=== PATIENT | male | born 1990 | race Hispanic/Latino ===

== ENCOUNTER 2018-04-22 15:21 | Emergency (ER) | payer OTHER, SELFPAY ==
[2018-04-22 16:02] LABS: #Basophils 0.1 thou/uL (0.0-0.2); #Lymphocytes 2.2 thou/uL (1.20-3.40); #Monocytes 1.5 thou/uL (0.11-0.59); #Neutrophils 8.3 thou/uL (1.40-6.50); %Basophils 0.6 % (0.0-1.0); %Eosinophils 0.3 % (0.0-10.0); %Lymphocytes 18.4 % (21.0-51.0); %Monocytes 12.3 % (0.0-10.0); %Neutrophils 68.4 % (42.0-75.0); Hemoglobin 16.4 g/dL (14.0-18.0); Mean Corpuscular HGB CONC 34.1 g/dL (32.0-36.0); Mean Corpuscular Hemoglobin 30.9 pg (27.0-31.0); Mean Corpuscular Volume 90.7 fL (78.0-98.0); Mean Platelet Volume 9.4 fL (7.4-10.4); Platelet Count 247 thou/uL (130-400); Red Blood Cell (RBC) Count 5.31 mill/uL (4.70-6.10); White Blood Cell (WBC) Count 12.1 thou/uL (4.8-10.8)
--- NOTE | 2018-04-22 16:08 | RAD ---
PORTABLE CHEST: 04/22/2018 PROVIDED CLINICAL HISTORY: Chest pain. COMPARISON: 04/08/2012 FINDINGS: The cardiac and mediastinal silhouette are within normal limits. The lungs appear clear. No pleural fluid or pneumothorax apparent. IMPRESSION: No evidence for an acute cardiopulmonary process. POS: [facility]
[2018-04-22 16:23] LABS: ALT (SGPT) 42 U/L (8-55); AST (SGOT) 32 U/L (5-34); Albumin 5.1 g/dL (3.5-5.0); Alkaline Phosphatase 62 U/L (40-150); Anion Gap 16 mmol/L (10-20); BUN (Urea Nitrogen) 8 mg/dL (8.9-20.6); Calc. Creatinine Clearance 0 mL/min (70-130); Calcium 9.9 mg/dL (7.8-10.44); Carbon Dioxide 23 mmol/L (22-29); Chloride 101 mmol/L (98-107); Estimated GFR-MDRD 70; Globulin 3.3 g/dL (2.4-3.5); Glucose 122 mg/dL (70-105); Potassium 3.3 mmol/L (3.5-5.1); Protein, Total 8.4 g/dL (6.0-8.3); Sodium 137 mmol/L (136-145)
[2018-04-22] MEDS ORDERED: Ketorolac Tromethamine 30 MG/ML VIAL ONE (16:24)
[2018-04-22 16:26] LABS: CKMB 2.1 ng/mL (0-6.6); Troponin I Less than 0.010 ng/mL (< 0.028)
== END 2018-04-22 17:48 | disposition home or self-care (01) ==
LOC: ERS 15:21
DX: R07.89 Other chest pain (principal); F17.210 Nicotine dependence, cigarettes, uncomplicated
CPT/HCPCS: 36415; 71045; 80053; 82553; 84484; 85025; 85379; 93005; 96372; J1885

== ENCOUNTER 2018-08-28 13:57 | Emergency (ER) | payer SELFPAY ==
[2018-08-28 14:58] LABS: Bilirubin Negative (Negative); Blood, Urine Large (Negative); Clarity CLOUDY (Clear); Glucose, Urine (Dipstick) Negative (Negative); Leukocyte Moderate (Negative); Nitrite Negative (Negative); Protein, Urine (Dipstick) 100 mg/dL (Neg-Trace); Urobilinogen 0.2 mg/dL (0.2-1.0)
[2018-08-28 15:00] LABS: Hyaline Casts/LPF 4-6 HYALINE CAST LPF (0-3 Hyaline); Pathc Cast-AUWi Flag 1.16 (0-2.49); RBC/HPF GREATER THAN 50-TNTC HPF (0-3); Squamous Epithelial 0-3 HPF (0-3)
[2018-08-28 15:04] LABS: Bacteria/HPF 1+ HPF (None Seen); Renal Epithelial None Seen HPF (0-3); Transitional Epithelial NONE SEEN HPF (0-3)
== END 2018-08-28 16:06 | disposition home or self-care (01) ==
LOC: ERS 13:57
DX: R31.9 Hematuria, unspecified (principal); F17.210 Nicotine dependence, cigarettes, uncomplicated
CPT/HCPCS: 81003; 81015; 99283

== ENCOUNTER 2018-12-11 17:34 | Emergency (ER) | payer SELFPAY ==
[2018-12-11 19:17] LABS: #Basophils 0.1 thou/uL (0.0-0.2); #Eosinphils 0.1 thou/uL (0.0-0.7); #Lymphocytes 3.3 thou/uL (1.20-3.40); #Monocytes 1.3 thou/uL (0.11-0.59); #Neutrophils 7.2 thou/uL (1.40-6.50); %Basophils 0.9 % (0.0-1.0); %Lymphocytes 27.3 % (21.0-51.0); %Monocytes 10.7 % (0.0-10.0); %Neutrophils 60.1 % (42.0-75.0); Hemoglobin 17.8 g/dL (14.0-18.0); Mean Corpuscular HGB CONC 33.3 g/dL (32.0-36.0); Mean Corpuscular Hemoglobin 30.8 pg (27.0-31.0); Mean Corpuscular Volume 92.7 fL (78.0-98.0); Platelet Count 301 thou/uL (130-400); RBC Distribution Width 11.3 % (11.5-14.5); Red Blood Cell (RBC) Count 5.79 mill/uL (4.70-6.10)
[2018-12-11 19:40] LABS: ALT (SGPT) 47 U/L (8-55); AST (SGOT) 49 U/L (5-34); Albumin 5.3 g/dL (3.5-5.0); Alkaline Phosphatase 70 U/L (40-150); Anion Gap 18 mmol/L (10-20); BUN (Urea Nitrogen) 37 mg/dL (8.9-20.6); CK (CPK) 1716 U/L (30-200); Calc. Creatinine Clearance 0 mL/min (70-130); Calcium 10.5 mg/dL (7.8-10.44); Carbon Dioxide 22 mmol/L (22-29); Chloride 99 mmol/L (98-107); Estimated GFR-MDRD 47; Globulin 3.3 g/dL (2.4-3.5); Glucose 97 mg/dL (70-105); Lipase 31 U/L (8-78); Potassium 3.7 mmol/L (3.5-5.1); Protein, Total 8.6 g/dL (6.0-8.3); Sodium 135 mmol/L (136-145)
[2018-12-11] MEDS ORDERED: Ondansetron PF 4 MG/2 ML Vial ONE (19:59)
[2018-12-11] MEDS ORDERED: Ketorolac Tromethamine 30 MG/ML VIAL ONE (19:59)
[2018-12-11 23:23] LABS: Anion Gap 13 mmol/L (10-20); BUN (Urea Nitrogen) 34 mg/dL (8.9-20.6); CK (CPK) 1327 U/L (30-200); Calc. Creatinine Clearance 0 mL/min (70-130); Calcium 8.6 mg/dL (7.8-10.44); Carbon Dioxide 24 mmol/L (22-29); Chloride 104 mmol/L (98-107); Estimated GFR-MDRD 63; Glucose 90 mg/dL (70-105); Potassium 3.6 mmol/L (3.5-5.1); Sodium 137 mmol/L (136-145)
--- NOTE | 2018-12-15 16:48 | EKG ---
Test Reason : CHEST PRESSURE Blood Pressure : / mmHG Vent. Rate : 096 BPM Atrial Rate : 096 BPM P-R Int : 130 ms QRS Dur : 088 ms QT Int : 338 ms P-R-T Axes : 000 143 128 degrees QTc Int : 427 ms Normal sinus rhythm Left posterior fascicular block Nonspecific T wave abnormality Abnormal ECG Confirmed by THEA BALDERRAMA ([id number]), assignment editor ANABELLA POND ([id number]) on 12/15/2018 4:47:05 PM Referred By: Confirmed By:THEA BALDERRAMA
== END 2018-12-12 00:39 | disposition home or self-care (01) ==
LOC: ERS 17:34
DX: M62.82 Rhabdomyolysis (principal); Z87.891 Personal history of nicotine dependence
CPT/HCPCS: 36415; 80053; 82550; 83690; 85025; 87804; 93005; 96361; 96374; 96375; J1885; J2405

== ENCOUNTER 2019-11-17 18:44 | Emergency (ER) | payer SELFPAY ==
[2019-11-17 19:15] LABS: #Basophils 0.1 thou/uL (0.0-0.2); #Eosinphils 0.1 thou/uL (0.0-0.7); #Lymphocytes 2.8 thou/uL (1.20-3.40); #Monocytes 0.8 thou/uL (0.11-0.59); #Neutrophils 7.1 thou/uL (1.40-6.50); %Basophils 1.1 % (0.0-1.0); %Eosinophils 1.1 % (0.0-10.0); %Lymphocytes 25.4 % (21.0-51.0); %Monocytes 7.4 % (0.0-10.0); %Neutrophils 65.1 % (42.0-75.0); Hemoglobin 16.9 g/dL (14.0-18.0); Mean Corpuscular HGB CONC 35.5 g/dL (32.0-36.0); Mean Corpuscular Hemoglobin 33.3 pg (27.0-31.0); Mean Corpuscular Volume 93.9 fL (78.0-98.0); Mean Platelet Volume 8.9 fL (7.4-10.4); Platelet Count 242 thou/uL (130-400); RBC Distribution Width 11.2 % (11.5-14.5); Red Blood Cell (RBC) Count 5.06 mill/uL (4.70-6.10); White Blood Cell (WBC) Count 10.9 thou/uL (4.8-10.8)
[2019-11-17 19:19] LABS: Bilirubin Negative (Negative); Blood, Urine Negative (Negative); Clarity Clear (Clear); Glucose, Urine (Dipstick) Normal (Negative); Leukocyte Negative Leu/uL (Negative); Nitrite Negative (Negative); Protein, Urine (Dipstick) Negative (Neg-Trace); Urobilinogen Normal mg/dL (Less than 2)
[2019-11-17 19:43] LABS: ALT (SGPT) 31 U/L (8-55); AST (SGOT) 28 U/L (5-34); Albumin 4.9 g/dL (3.5-5.0); Alkaline Phosphatase 59 U/L (40-110); Anion Gap 13 mmol/L (10-20); BUN (Urea Nitrogen) 13 mg/dL (8.9-20.6); Bilirubin, Total 0.7 mg/dL (0.2-1.2); Calc. Creatinine Clearance 0 mL/min (70-130); Calcium 10.1 mg/dL (7.8-10.44); Carbon Dioxide 25 mmol/L (22-29); Chloride 102 mmol/L (98-107); Estimated GFR-MDRD 78; Globulin 2.9 g/dL (2.4-3.5); Glucose 97 mg/dL (70-105); Potassium 4.1 mmol/L (3.5-5.1); Protein, Total 7.8 g/dL (6.0-8.3); Sodium 136 mmol/L (136-145)
[2019-11-17 21:04] LABS: Amphetamine Detected (NotDetected); Medtox Reader # READER 4; Methamphetamine Detected (NotDetected); THC/Cannabinoid Screen Detected (NotDetected)
[2019-11-17 21:05] LABS: Barbiturates Screen Not Detected (NotDetected); Benzodiazepine Screen Not Detected (NotDetected); Cocaine Metabolite Screen Not Detected (NotDetected); Medtox Control Line Valid? VALID (VALID); Methadone Not Detected (NotDetected); Opiate Screen Not Detected (NotDetected); Oxycodone Screen Not Detected (NotDetected); Phencyclidine (PCP) Not Detected (NotDetected); Tricyclic Screen Not Detected (NotDetected)
== END 2019-11-17 21:51 | disposition home or self-care (01) ==
LOC: ERS 18:44
DX: F15.10 Other stimulant abuse, uncomplicated (principal); E86.0 Dehydration; Z87.891 Personal history of nicotine dependence
CPT/HCPCS: 36415; 36416; 80053; 80306; 81003; 82550; 85025; 93005; 96360

== ENCOUNTER 2020-01-19 13:55 | Emergency (ER) | payer SELFPAY ==
[~2020-01-19 13:55] MED LIST: Iopamidol-370 76% 500 ML 1 ML ONE
[2020-01-19 14:26] LABS: #Basophils 0.1 thou/uL (0.0-0.2); #Eosinphils 0.1 thou/uL (0.0-0.7); #Lymphocytes 2.7 thou/uL (1.20-3.40); #Monocytes 0.8 thou/uL (0.11-0.59); #Neutrophils 4.7 thou/uL (1.40-6.50); %Basophils 0.9 % (0.0-1.0); %Eosinophils 1.4 % (0.0-10.0); %Lymphocytes 32.3 % (21.0-51.0); %Monocytes 9.4 % (0.0-10.0); Hemoglobin 17.3 g/dL (14.0-18.0); Mean Corpuscular HGB CONC 34.7 g/dL (32.0-36.0); Mean Corpuscular Hemoglobin 32.2 pg (27.0-31.0); Mean Corpuscular Volume 92.9 fL (78.0-98.0); Mean Platelet Volume 9.4 fL (7.4-10.4); Platelet Count 236 thou/uL (130-400); RBC Distribution Width 11.1 % (11.5-14.5); Red Blood Cell (RBC) Count 5.38 mill/uL (4.70-6.10); White Blood Cell (WBC) Count 8.4 thou/uL (4.8-10.8)
[2020-01-19 14:47] LABS: ALT (SGPT) 25 U/L (8-55); AST (SGOT) 29 U/L (5-34); Alkaline Phosphatase 61 U/L (40-110); Anion Gap 14 mmol/L (10-20); BUN (Urea Nitrogen) 7 mg/dL (8.9-20.6); Calc. Creatinine Clearance 0 mL/min (70-130); Calcium 9.9 mg/dL (7.8-10.44); Carbon Dioxide 23 mmol/L (22-29); Chloride 101 mmol/L (98-107); Estimated GFR-MDRD Greater than 90; Globulin 3.3 g/dL (2.4-3.5); Glucose 124 mg/dL (70-105); Lipase 15 U/L (8-78); Potassium 3.8 mmol/L (3.5-5.1); Protein, Total 8.3 g/dL (6.0-8.3); Sodium 134 mmol/L (136-145)
[2020-01-19 15:54] LABS: Bilirubin Negative (Negative); Blood, Urine Negative (Negative); Clarity Clear (Clear); Glucose, Urine (Dipstick) Normal (Negative); Leukocyte Negative Leu/uL (Negative); Nitrite Negative (Negative); Protein, Urine (Dipstick) Negative (Neg-Trace); Urobilinogen Normal mg/dL (Less than 2)
[2020-01-19 16:14] LABS: Lactic Acid 1.2 mmol/L (0.5-2.2)
[2020-01-19] MEDS ORDERED: Ondansetron PF 4 MG/2 ML Vial ONE (16:14)
--- NOTE | 2020-01-19 16:46 | CT ---
CT ABDOMEN WITH CONTRAST CT PELVIS WITH CONTRAST: DATE: 01/19/2020 HISTORY: 29-year-old male with abdominal pain and nausea COMPARISON: 10/08/2018 TECHNIQUE: IV injection of iodinated contrast media: administered. Oral contrast media:Not administered FINDINGS: The left ureteral stent has been removed. There is mild left hydroureteronephrosis, slightly worse th an previously. The mild mural thickening and mild mural enhancement of the left renal pelvis and the entire left ureter, cannot be compared to previous CT, because it was noncontrast. The bilateral nephrograms are symmetrical and normal. No right-sided hydronephrosis. Urinary bladder has normal, thin segura, except at the UVJ, where there is mild focal mural thickening. The appendix, abdominal ao rta, right kidney, adrenals, pancreas, liver, and spleen, are normal. Lung bases are clear. No colonic diverticulitis, small bowel dilation, pneumoperitoneum, or ascites. No osseous abnormality. IMPRESSION: 1. Interval removal of left ureteral stent. 2. Interval smiled worsening of mild left hydroureteronephrosis. This is suggestive of low-grade part ial obstruction at the left ureterovesical junction, where there is mild focal mural thickening of the left posterior lateral bladder wall. There is also mild mural thickening and mild mural enhanceme nt of the left ureter and left renal pelvis.
--- NOTE | 2020-01-25 11:01 | EKG ---
Test Reason : Blood Pressure : / mmHG Vent. Rate : 064 BPM Atrial Rate : 064 BPM P-R Int : 138 ms QRS Dur : 092 ms QT Int : 378 ms P-R-T Axes : 056 052 044 degrees QTc Int : 389 ms Normal sinus rhythm Normal ECG Confirmed by GABBIE TREADWELL DO ([id number]), market editor MEDINA CARDOZO ([id number]) on 01/25/2020 11:01:17 AM Referred By: Confirmed By:GABBIE TREADWELL DO
== END 2020-01-19 18:22 | disposition home or self-care (01) ==
LOC: ERS 13:55
DX: N13.30 Unspecified hydronephrosis (principal); Z87.891 Personal history of nicotine dependence
CPT/HCPCS: 36415; 74177; 80053; 81003; 83605; 83690; 85025; 93005; 96361; 96374; J2405; Q9967

== ENCOUNTER 2020-03-22 07:02 | Emergency (ER) | payer OTHER, SELFPAY ==
[2020-03-22 07:45] LABS: #Eosinphils 0.1 thou/uL (0.0-0.7); #Lymphocytes 1.7 thou/uL (1.20-3.40); #Monocytes 0.4 thou/uL (0.11-0.59); %Basophils 0.5 % (0.0-1.0); %Eosinophils 0.9 % (0.0-10.0); %Lymphocytes 27.4 % (21.0-51.0); %Monocytes 7.1 % (0.0-10.0); %Neutrophils 64.2 % (42.0-75.0); Hemoglobin 16.2 g/dL (14.0-18.0); Mean Corpuscular HGB CONC 33.8 g/dL (32.0-36.0); Mean Corpuscular Hemoglobin 31.8 pg (27.0-31.0); Mean Corpuscular Volume 94.2 fL (78.0-98.0); Mean Platelet Volume 8.6 fL (7.4-10.4); Platelet Count 237 thou/uL (130-400); RBC Distribution Width 11.2 % (11.5-14.5); Red Blood Cell (RBC) Count 5.11 mill/uL (4.70-6.10); White Blood Cell (WBC) Count 6.2 thou/uL (4.8-10.8)
[2020-03-22 07:56] LABS: ALT (SGPT) 40 U/L (8-55); AST (SGOT) 41 U/L (5-34); Albumin 4.9 g/dL (3.5-5.0); Alkaline Phosphatase 64 U/L (40-110); Anion Gap 13 mmol/L (10-20); BUN (Urea Nitrogen) 10 mg/dL (8.9-20.6); Bilirubin, Total 0.9 mg/dL (0.2-1.2); Calc. Creatinine Clearance 0 mL/min (70-130); Calcium 9.6 mg/dL (7.8-10.44); Carbon Dioxide 26 mmol/L (22-29); Chloride 102 mmol/L (98-107); Estimated GFR-MDRD 88; Glucose 117 mg/dL (70-105); Potassium 3.4 mmol/L (3.5-5.1); Protein, Total 7.9 g/dL (6.0-8.3); Sodium 138 mmol/L (136-145)
[2020-03-22] MEDS ORDERED: Ketorolac Tromethamine 30 MG/ML VIAL ONE (08:06)
--- NOTE | 2020-03-22 08:12 | RAD ---
CHEST 1 VIEW PORTABLE: HISTORY: Left-sided chest pain with shortness of breath for 1 hour. COMPARISON: 04/22/2018. FINDINGS: Heart size is within normal limits. The lungs are clear. No confluent pneumonia, overt edema, or pl eural effusion. IMPRESSION: No significant active intrathoracic disease. Stable from prior study. POS: OFF
--- NOTE | 2020-04-01 15:17 | EKG ---
Test Reason : Blood Pressure : / mmHG Vent. Rate : 071 BPM Atrial Rate : 071 BPM P-R Int : 128 ms QRS Dur : 094 ms QT Int : 404 ms P-R-T Axes : 043 047 035 degrees QTc Int : 439 ms Normal sinus rhythm Normal ECG Confirmed by MORGAN SAEED DO ([id number]), greeting card editor ANABELLA POND ([id number]) on 04/01/2020 3:16:24 PM Referred By: Confirmed By:MORGAN SAEED DO
== END 2020-03-22 11:50 | disposition home or self-care (01) ==
LOC: ERS 07:02
DX: R07.9 Chest pain, unspecified (principal); F15.10 Other stimulant abuse, uncomplicated
CPT/HCPCS: 71045; 80053; 84484; 85025; 93005; 96361; 96374; J1885

== ENCOUNTER 2020-06-07 10:37 | Emergency (ER) | payer SELFPAY, OTHER ==
[2020-06-08 13:00] LABS: SARS-CoV-2 MS2 Positive; SARS-CoV-2 N Gene Negative; SARS-CoV-2 S Gene Negative; SARS-CoV-2 by NAA Not Detected (NotDetected); SARS-CoV-2 orf1ab Negative
== END 2020-06-07 12:00 | disposition home or self-care (01) ==
LOC: ERS 10:37
DX: R05 Cough (principal); Z20.828 Contact with and (suspected) exposure to other viral communicable diseases; F17.210 Nicotine dependence, cigarettes, uncomplicated
CPT/HCPCS: 87635; 99283; U0003

== ENCOUNTER 2020-07-01 15:22 | Emergency (ER) | payer OTHER, SELFPAY ==
[2020-07-01 22:17] LABS: SARS-CoV-2 MS2 Positive; SARS-CoV-2 N Gene Negative; SARS-CoV-2 S Gene Negative; SARS-CoV-2 by NAA Not Detected (NotDetected); SARS-CoV-2 orf1ab Negative
== END 2020-07-01 15:41 | disposition home or self-care (01) ==
LOC: ERS 15:22
DX: R06.02 Shortness of breath (principal); Z20.828 Contact with and (suspected) exposure to other viral communicable diseases
CPT/HCPCS: 87635; 99283; U0003

== ENCOUNTER 2020-07-15 08:39 | Inpatient (IN) | payer SELFPAY ==
[2020-07-15 09:02] LABS: Bilirubin Negative (Negative); Blood, Urine Negative (Negative); Clarity Clear (Clear); Glucose, Urine (Dipstick) Normal (Negative); Ketone, Urine Negative (Negative); Leukocyte Negative Leu/uL (Negative); Nitrite Negative (Negative); Protein, Urine (Dipstick) Negative (Neg-Trace); Specific Gravity, Urine 1.018 (1.002-1.036); Urobilinogen Normal mg/dL (Less than 2)
[2020-07-15 09:32] LABS: #Basophils 0.1 thou/uL (0.0-0.2); #Eosinphils 0.3 thou/uL (0.0-0.7); #Lymphocytes 2.7 thou/uL (1.20-3.40); #Monocytes 0.5 thou/uL (0.11-0.59); #Neutrophils 3.3 thou/uL (1.40-6.50); %Basophils 1.4 % (0.0-1.0); %Eosinophils 3.9 % (0.0-10.0); %Lymphocytes 39.4 % (21.0-51.0); %Monocytes 7.7 % (0.0-10.0); %Neutrophils 47.6 % (42.0-75.0); Mean Corpuscular HGB CONC 32.8 g/dL (32.0-36.0); Mean Corpuscular Hemoglobin 31.4 pg (27.0-31.0); Mean Corpuscular Volume 95.5 fL (78.0-98.0); Mean Platelet Volume 8.8 fL (7.4-10.4); Platelet Count 220 thou/uL (130-400); RBC Distribution Width 10.9 % (11.5-14.5); Red Blood Cell (RBC) Count 5.11 mill/uL (4.70-6.10); White Blood Cell (WBC) Count 6.9 thou/uL (4.8-10.8)
[2020-07-15 09:52] LABS: ALT (SGPT) 23 U/L (8-55); AST (SGOT) 16 U/L (5-34); Albumin 4.2 g/dL (3.5-5.0); Alkaline Phosphatase 61 U/L (40-110); Anion Gap 11 mmol/L (10-20); BUN (Urea Nitrogen) 8 mg/dL (8.9-20.6); Bilirubin, Total 0.4 mg/dL (0.2-1.2); Calc. Creatinine Clearance 0 mL/min (70-130); Calcium 9.2 mg/dL (7.8-10.44); Carbon Dioxide 29 mmol/L (22-29); Chloride 106 mmol/L (98-107); Globulin 2.6 g/dL (2.4-3.5); Potassium 4.1 mmol/L (3.5-5.1); Protein, Total 6.8 g/dL (6.0-8.3); Sodium 142 mmol/L (136-145)
[2020-07-15] MEDS ORDERED: Ketorolac Tromethamine 30 MG/ML VIAL ONE (09:57)
[2020-07-15] MEDS ORDERED: Ondansetron PF 4 MG/2 ML Vial ONE (09:57)
[2020-07-15 09:58] LABS: Glucose 58 mg/dL (70-105)
--- NOTE | 2020-07-15 12:16 | CT ---
CT OF THE ABDOMEN AND PELVIS WITHOUT AND WITH CONTRAST: Date: 07/15/2020 COMPARISON: 01/19/2020. HISTORY: Left abdominal and back pain for 3-4 days. Patient has had prior urologic surgery for a nickie ureter o n the left. TECHNIQUE: Multiple contiguous axial images were obtained in a CT of the abdomen and pelvis without and with IV contrast. Sagittal and coronal reformats were performed. FINDINGS: There is stable prominence of the left ureter and left renal collecting system. No delay in the left nephrogram is seen compared to the right. There is an area of focal thickening of the mid portion of the left ureter measuring approximately 3.5 cm in length. There is also focal thickening at the left ureterovesical junction which is stable. No calcifications are seen in either kidney. The liver, gallbladder, right kidney, adrenal glands, spleen, and pancreas are unremarkable. No free air, free fluid, or stranding changes are seen in the abdomen or pelvis. The large and small bowel are unremarkable. No abdominal or pelvic lymphadenopathy are seen. The abdominal wall soft tissues and visualized inferior thorax are unremarkable. The bones are unrema rkable. IMPRESSION: There is stable mild enlargement of the left renal collecting system without a significant delay in t he left nephrogram compared to the right. There appears to be an area of focal thickening in the mid portion of the left ureter and an area of focal thickening at the left ureterovesical junction. This may represent postsurgical change. POS: [facility]
[2020-07-15] MEDS ORDERED: Iopamidol-370 76% 500 ML 1 ML ONE (13:02)
[2020-07-15] MEDS ORDERED: Zolpidem Tartrate 5 MG TAB PO PRN (13:35)
[2020-07-15] MEDS ORDERED: Morphine 4 MG/ML VIAL SLOW IVP PRN (13:35)
[2020-07-15] MEDS ORDERED: Ondansetron PF 4 MG/2 ML Vial IVP PRN (13:35)
[2020-07-15] MEDS ORDERED: hydrALAZINE 20 MG/ML VIAL SLOW IVP PRN (13:35)
[2020-07-15] MEDS ORDERED: diphenhydrAMINE 50 MG/ML VIAL IVP PRN (13:35)
[2020-07-15] MEDS ORDERED: HYDROcodone/Acetaminophen 5/325 mg Tablet ONE (18:42)
[2020-07-15] MEDS ORDERED: CEFAZOLIN 2 GM in Premix Bag 1 BAG IVPB SCH (19:00)
[2020-07-15 19:34] LABS: SARS-CoV-2 MS2 Positive; SARS-CoV-2 N Gene Negative; SARS-CoV-2 S Gene Negative; SARS-CoV-2 by NAA Not Detected (NotDetected); SARS-CoV-2 orf1ab Negative
--- NOTE | 2020-07-15 19:39 | HP ---
CHIEF COMPLAINT: Left-sided flank pain. HISTORY OF PRESENT ILLNESS: This is a 30-year-old male with a history of left megaureter with Hutch diverticulum, undergoing an open tunneled left ureteral reimplant by Dr. Tripp at age 13. At age 17, he developed left-sided flank pain, underwent a laser procedure to treat a stricture at the left UO with stent placement. He had a stent exchange in 2012 and not had a change between then and I first saw him in August 2018. In late September 2018, I performed ureteroscopy showing a stricture at the left UO with dilation and stent placement. He had that stent removed in October 11. He tells me he did well for several months, but over the past several months, he has been having recurrent left-sided flank pain with nausea. He has been seen in the emergency room several times with left-sided flank pain. He was last seen in my office on June 10 and continued to have left-sided flank pain with sensation of frequent urination. He recently has been seen at [facility]. He presents to the emergency room today reporting worsening pain with intermittent nausea. In speaking with him, he reports that his pain is better controlled. He denies fevers, dysuria, or hematuria at this time. We have previously been unable to schedule definitive surgery for him due to his funding status. PAST MEDICAL HISTORY: Depression. PAST SURGICAL HISTORY: Ear tubes, left ureteral surgeries as outlined above. FAMILY HISTORY: Reviewed, noncontributory. ALLERGIES: NO KNOWN DRUG ALLERGIES. CURRENT MEDICATIONS: None. REVIEW OF SYSTEMS: 12-point review of systems is negative except as mentioned in my HPI. PHYSICAL EXAMINATION: VITAL SIGNS: Afebrile. Vitals are stable. GENERAL: In no acute distress, conversant. HEENT: Head, normocephalic and atraumatic. Extraocular movements intact. Sclerae anicteric. NECK: Supple. Trachea midline. LUNGS: Unlabored breathing. Symmetric chest expansion. HEART: Regular rate and rhythm. ABDOMEN: Soft, nontender, nondistended. : Low midline incision from his previous ureteral reconstruction. No flank tenderness. No suprapubic tenderness. Normal phallus and testicles. SKIN: Warm and dry. NEUROLOGIC: Alert and oriented x3. PSYCHIATRIC: Normal mood and affect. EXTREMITIES: No peripheral edema or cyanosis. LABORATORY DATA: Reviewed. White count 6.9, hemoglobin 16. Creatinine 1.05. Urinalysis, negative for infection. IMAGING DATA: I personally reviewed his CT scan, which does show mild hydronephrosis and hydroureter on the left side down to a strictured area about 2 cm in length at the distal left ureter. ASSESSMENT AND PLAN: Left flank pain, left hydronephrosis, left ureteral stricture. The patient and I discussed his options and I decided that given his recurrent pain episodes, we will admit him for pain control and plan definitive surgery tomorrow. He and I have previously discussed this, however, we once again went over the procedure in detail including the expected postoperative course involving a Bowie catheter for 7 to 10 days and stent placement for 2 to 3 weeks. We also reviewed the risks of bleeding, infection, pain, injury to surrounding structures, urine leak, stricturing of the ureteroneocystostomy, progressive renal failure. He expressed understanding and wishes to proceed. Gastrointestinal and deep venous thrombosis prophylaxis. COVID pending. Job ID: [id number]
[2020-07-15] MEDS: Docusate 100 MG CAP PO SCH (21:44)
[2020-07-16] MEDS ORDERED: HYDROcodone/Acetaminophen 5/325 mg Tablet ONE ×2 (00:07→09:53)
[2020-07-16] MEDS ORDERED: Famotidine/PF 20 mg/2ml Vial ONE ×2 (00:07→09:54)
[2020-07-16] MEDS: Famotidine/PF 20 mg/2ml Vial SLOW IVP SCH ×3 (00:13→20:23)
[2020-07-16] MEDS: HYDROcodone/Acetaminophen 5/325 mg Tablet PO PRN ×3 (00:13→20:23)
[2020-07-16] MEDS: D5 1/2 NS w/20 mEq KCL 1,000 ML IV SCH ×4 (01:50→21:09)
[2020-07-16] MEDS: Docusate 100 MG CAP PO SCH ×2 (10:03→20:23)
[2020-07-16] MEDS: Tamsulosin HCl 0.4 MG CAP PO SCH (10:03)
[2020-07-16] MEDS ORDERED: Dexamethasone 20 MG/5 ML VIAL ONE (11:11)
[2020-07-16] MEDS ORDERED: Glycopyrrolate 0.2 MG/ML 5 ML SYRINGE ONE (11:11)
[2020-07-16] MEDS ORDERED: ePHEDrine 50 MG/ML VIAL ONE (11:11)
[2020-07-16] MEDS ORDERED: PHENYLEPHRINE-NS 100 MCG/ML 10 ML SYRINGE ONE (11:11)
[2020-07-16] MEDS ORDERED: Rocuronium Bromide 10 MG/ML (10ML VIAL) ONE (11:11)
[2020-07-16] MEDS ORDERED: PROPOFOL 200 MG/20 ML VIAL ONE (11:11)
[2020-07-16] MEDS ORDERED: Lidocaine 1% PF 5 ML VIAL ONE (11:11)
[2020-07-16] MEDS ORDERED: Ondansetron PF 4 MG/2 ML Vial ONE (11:11)
[2020-07-16] MEDS ORDERED: Fentanyl 100 MCG/2 ML VIAL ONE ×5 (13:56→19:00)
[2020-07-16] MEDS ORDERED: Bupivacaine 0.25% HCL 30 ML VIAL ONE (14:29)
[2020-07-16] MEDS ORDERED: SUGAMMADEX SODIUM 200 MG/2 ML VIAL ONE (15:44)
[2020-07-16] MEDS ORDERED: Promethazine HCl 25 MG/ML VIAL IM PRN (16:18)
[2020-07-16] MEDS ORDERED: Promethazine HCl 25 MG/ML VIAL SLOW IVP PRN (16:18)
[2020-07-16] MEDS ORDERED: Ondansetron HCl/PF 4 MG/2 ML Vial IVP PRN (16:18)
[2020-07-16] MEDS ORDERED: Meperidine HCl/PF 25 MG/ML VIAL ONE (16:29)
--- NOTE | 2020-07-16 17:30 | OP ---
DATE OF PROCEDURE: 07/16/2020 PREOPERATIVE DIAGNOSIS: Left ureteral stricture. POSTOPERATIVE DIAGNOSIS: Left ureteral stricture, megaureter. PROCEDURE PERFORMED: Left ureteral reimplant with left stent placement. ANESTHESIA: General. COMPLICATIONS: None. BLOOD LOSS: 40 mL. SPECIMEN: Distal ureter. DESCRIPTION OF PROCEDURE: After informed consent, the patient was taken to the operating room, transferred to the table under his own power. Anesthesia was established. A time-out was performed showing the correct patient, site, and procedure. Preoperative antibiotics were administered. He was prepped and draped in the supine position. I began by placing a 20-English Bowie catheter in the operative field with good return of urine and 10 mL instilled in the balloon. I reopened his low midline incision scar and carried this down to fascia with electrocautery. Fascia was carefully opened and muscle at midline. The space of Retzius was developed on the left side. Bookwalter was deployed. The left ureter was identified, noting that it was abnormal and that has a significant amount of periureteral fat for a diameter of about 2 cm. I was able to trace this down to the bladder and transected the ureter at its distal most aspect. The resulting ureteral stump with a distal ureteral stump was oversewn with Vicryl suture. The ureter was then trimmed back to normal caliber and the resultant ureteral specimen sent off for pathology. The resulting ureter was spatulated, noting a widely patent lumen. Clear urine was draining. The bladder was then filled with about 200 mL of fluid and cystotomy performed on the left side of the dome of the bladder. Stay sutures were placed at the apices of the cystotomy. These were passed through the corresponding sites in the spatulated ureter. 4-0 Vicryl was used here. The lateral aspect of the anastomosis was run with the previously placed 4-0 Vicryl. I then passed a wire into the ureter and easily passed a stent over the wire into the proximal ureter. A 7 x 24 double-J ureteral stent was used. The distal curl was then tucked into the bladder under direct visualization. I was able to visualize the Bowie in the bladder lumen as well. The medial aspect of the anastomosis was then run with the second 4-0 Vicryl that had been previously placed. I then used 2-0 Vicryl to imbricate the bladder onto the ureter. The bladder was then filled to 240 mL noting no extravasation of fluid from the anastomosis site. The pelvis was then irrigated and then fascia was closed in a running fashion with 0 PDS suture. Subcutaneous tissues were closed with Vicryl suture before closing the skin in a subcuticular fashion with 4-0 Monocryl. This was dressed with Dermabond. The Bowie catheter was connected to bag drainage and affixed to his leg with a StatLock device. He was awoken from anesthesia and transferred back to his hospital bed and taken to PACU in stable condition, where he will be admitted to the floor overnight. Job ID: [id number]
[2020-07-16] MEDS: CEFAZOLIN 2 GM in Premix Bag 1 BAG IVPB SCH (20:21)
[2020-07-16] MEDS ORDERED: Oxybutynin 5 MG TAB PO PRN (22:33)
[2020-07-17 02:07] VITALS: BMI 22.2
[2020-07-17] MEDS: HYDROcodone/Acetaminophen 5/325 mg Tablet PO PRN ×2 (02:34→10:22)
[2020-07-17] MEDS: D5 1/2 NS w/20 mEq KCL 1,000 ML IV SCH (04:14)
[2020-07-17] MEDS: CEFAZOLIN 2 GM in Premix Bag 1 BAG IVPB SCH ×2 (05:14→13:53)
[2020-07-17 05:45] LABS: Mean Corpuscular HGB CONC 33.7 g/dL (32.0-36.0); Mean Corpuscular Hemoglobin 31.6 pg (27.0-31.0); Mean Corpuscular Volume 93.6 fL (78.0-98.0); Mean Platelet Volume 9.1 fL (7.4-10.4); Platelet Count 210 thou/uL (130-400); RBC Distribution Width 10.7 % (11.5-14.5); Red Blood Cell (RBC) Count 4.44 mill/uL (4.70-6.10); White Blood Cell (WBC) Count 15.2 thou/uL (4.8-10.8)
[2020-07-17 06:01] LABS: Anion Gap 11 mmol/L (10-20); BUN (Urea Nitrogen) 8 mg/dL (8.9-20.6); Calc. Creatinine Clearance 121 mL/min (70-130); Calcium 8.2 mg/dL (7.8-10.44); Carbon Dioxide 26 mmol/L (22-29); Chloride 106 mmol/L (98-107); Glucose 131 mg/dL (70-105); Potassium 4.1 mmol/L (3.5-5.1); Sodium 139 mmol/L (136-145)
[2020-07-17] MEDS: Tamsulosin HCl 0.4 MG CAP PO SCH (08:55)
[2020-07-17] MEDS: Famotidine/PF 20 mg/2ml Vial SLOW IVP SCH (08:55)
[2020-07-17] MEDS: Docusate 100 MG CAP PO SCH (08:55)
[2020-07-17] MEDS ORDERED: Enoxaparin Sodium 40 MG/0.4 ML SYRINGE SC SCH (09:00)
[2020-07-17] MEDS ORDERED: HYDROcodone/Acetaminophen 10/325 mg Tablet PO SCH (14:30)
[2020-07-17 15:29] VITALS: BP 118/71; TEMP 98.9
== END 2020-07-17 15:32 | disposition home or self-care (01) | DRG 661 ==
LOC: ERS 08:39 → ERHOLD 11:32 → SURG A 07-16 19:35
PROVIDERS: ADMIT Urology; ATTEND Urology
PROC: 0T170ZB Bypass Left Ureter to Bladder, Open Approach (ICD-10-PCS; principal; 2020-07-16)
PROC: 0T770DZ Dilation of Left Ureter with Intraluminal Device, Open Approach (ICD-10-PCS; 2020-07-16)
DX: N13.1 Hydronephrosis with ureteral stricture, not elsewhere classified (principal); F32.9 Major depressive disorder, single episode, unspecified; N28.82 Megaloureter; Z20.828 Contact with and (suspected) exposure to other viral communicable diseases
CPT/HCPCS: 36415; 36416; 74178; 80048; 80053; 81003; 85025; 85027; 87635; 93005; 96374; 96375; J0690; J1100; J1200; J1650; J1885; J2175; J2270; J2405; J2704; J3010; J3480; J3490; Q9967; S0020; S0028; U0003

== ENCOUNTER 2020-07-18 13:57 | Emergency (ER) | payer SELFPAY ==
[2020-07-18] MEDS ORDERED: Morphine 4 MG/ML VIAL ONE (14:20)
[2020-07-18] MEDS ORDERED: Ondansetron PF 4 MG/2 ML Vial ONE (14:20)
[2020-07-18 15:14] LABS: ALT (SGPT) 64 U/L (8-55); AST (SGOT) 42 U/L (5-34); Albumin 3.8 g/dL (3.5-5.0); Alkaline Phosphatase 58 U/L (40-110); Anion Gap 14 mmol/L (10-20); BUN (Urea Nitrogen) 6 mg/dL (8.9-20.6); Bilirubin, Total 0.6 mg/dL (0.2-1.2); Calc. Creatinine Clearance 0 mL/min (70-130); Calcium 8.8 mg/dL (7.8-10.44); Carbon Dioxide 27 mmol/L (22-29); Chloride 103 mmol/L (98-107); Globulin 2.2 g/dL (2.4-3.5); Glucose 96 mg/dL (70-105); Potassium 3.7 mmol/L (3.5-5.1); Sodium 140 mmol/L (136-145)
[2020-07-18 15:15] LABS: #Basophils 0.1 thou/uL (0.0-0.2); #Eosinphils 0.1 thou/uL (0.0-0.7); #Lymphocytes 1.9 thou/uL (1.20-3.40); #Neutrophils 10.1 thou/uL (1.40-6.50); %Basophils 0.4 % (0.0-1.0); %Eosinophils 0.4 % (0.0-10.0); %Lymphocytes 14.3 % (21.0-51.0); %Monocytes 7.5 % (0.0-10.0); %Neutrophils 77.3 % (42.0-75.0); Hemoglobin 14.5 g/dL (14.0-18.0); Mean Corpuscular HGB CONC 33.2 g/dL (32.0-36.0); Mean Corpuscular Hemoglobin 31.7 pg (27.0-31.0); Mean Corpuscular Volume 95.3 fL (78.0-98.0); Mean Platelet Volume 9.8 fL (7.4-10.4); Platelet Count 167 thou/uL (130-400); RBC Distribution Width 10.9 % (11.5-14.5); Red Blood Cell (RBC) Count 4.59 mill/uL (4.70-6.10); White Blood Cell (WBC) Count 13.1 thou/uL (4.8-10.8)
[2020-07-18] MEDS ORDERED: Ketorolac Tromethamine 30 MG/ML VIAL ONE (15:37)
[2020-07-18] MEDS ORDERED: Fentanyl 100 MCG/2 ML VIAL ONE ×2 (15:37→18:30)
--- NOTE | 2020-07-18 16:52 | CT ---
CT ABDOMEN AND PELVIS WITH IV CONTRAST: 07/18/20 HISTORY: 30-year-old male with recent nickie ureter surgery. Patient was released from the hospital yesterday an d has not voided. The catheter bag is filled with bloody urine. FINDINGS: Comparison is made with the exam of 07/15/20. There has been interval placement of a left sided ureteral stent. There is a Bowie catheter in a deco mpressed urinary bladder. There is free air in the left lower pelvis and small amount of free fluid. Likely due to recent surgery. Also noted is a small amount of free air in the subcutaneous fat of the lower abdomen and in the inguinal canal. There is symmetric enhancement of the renal cortices bilate rally. Mild dependent changes in the lung bases. The liver, spleen, pancreas and adrenal glands are normal. No calcified gallstones are seen. No lymphadenopathy identified. Bony structures are unremarkable. IMPRESSION: Postop changes in the left lower pelvis with interval placement of left ureteral stent since 07/15/20. Discussed over the telephone with Martha Cordero NP in the ER at 4:11 p.m. POS: [facility]
[2020-07-18] MEDS ORDERED: Ketorolac Tromethamine 10 MG TAB PO SCH (18:45)
== END 2020-07-18 19:28 | disposition home or self-care (01) ==
LOC: ERS 13:57
DX: G89.18 Other acute postprocedural pain (principal); R10.2 Pelvic and perineal pain
CPT/HCPCS: 36415; 51702; 74177; 80053; 83605; 85025; 87040; 96374; 96375; 96376; J1885; J2270; J2405; J3010; Q9967

== ENCOUNTER 2020-07-20 21:30 | Emergency (ER) | payer SELFPAY ==
[2020-07-20 22:24] LABS: #Basophils 0.1 thou/uL (0.0-0.2); #Eosinphils 0.2 thou/uL (0.0-0.7); #Monocytes 0.6 thou/uL (0.11-0.59); #Neutrophils 4.6 thou/uL (1.40-6.50); %Basophils 1.3 % (0.0-1.0); %Eosinophils 2.5 % (0.0-10.0); %Lymphocytes 26.3 % (21.0-51.0); %Neutrophils 61.9 % (42.0-75.0); Hemoglobin 13.6 g/dL (14.0-18.0); Mean Corpuscular HGB CONC 34.6 g/dL (32.0-36.0); Mean Corpuscular Hemoglobin 32.2 pg (27.0-31.0); Mean Corpuscular Volume 93.2 fL (78.0-98.0); Mean Platelet Volume 8.6 fL (7.4-10.4); Platelet Count 238 thou/uL (130-400); RBC Distribution Width 10.8 % (11.5-14.5); Red Blood Cell (RBC) Count 4.22 mill/uL (4.70-6.10); White Blood Cell (WBC) Count 7.4 thou/uL (4.8-10.8)
[2020-07-20 22:55] LABS: ALT (SGPT) 42 U/L (8-55); AST (SGOT) 28 U/L (5-34); Albumin 3.6 g/dL (3.5-5.0); Alkaline Phosphatase 76 U/L (40-110); Anion Gap 11 mmol/L (10-20); BUN (Urea Nitrogen) 10 mg/dL (8.9-20.6); Bilirubin, Total 0.4 mg/dL (0.2-1.2); Calc. Creatinine Clearance 0 mL/min (70-130); Carbon Dioxide 30 mmol/L (22-29); Chloride 103 mmol/L (98-107); Globulin 2.9 g/dL (2.4-3.5); Potassium 3.9 mmol/L (3.5-5.1); Protein, Total 6.5 g/dL (6.0-8.3); Sodium 140 mmol/L (136-145)
[2020-07-20 23:09] LABS: Calcium 8.7 mg/dL (7.8-10.44); Glucose 97 mg/dL (70-105)
[2020-07-20 23:10] LABS: Bilirubin Negative (Negative); Blood, Urine 3+ (Negative); Clarity Turbid (Clear); Glucose, Urine (Dipstick) Normal (Negative); Ketone, Urine Negative (Negative); Leukocyte 500 Leu/uL (Negative); Nitrite Negative (Negative); Protein, Urine (Dipstick) 100 mg/dL (Neg-Trace); RBC/HPF Greater than 50 HPF (0-3); Specific Gravity, Urine 1.023 (1.002-1.036); Squamous Epithelial None Seen HPF (0-3); Urobilinogen Normal mg/dL (Less than 2); WBC/HPF 21-50 HPF (0-3)
[2020-07-20 23:17] LABS: Bacteria/HPF 1+ HPF (None Seen)
[2020-07-21] MEDS ORDERED: Lidocaine 1% PF 5 ML VIAL ONE (00:41)
[2020-07-21] MEDS ORDERED: cefTRIAXone\\ROCEPHIN 1 GM VIAL ONE (00:41)
== END 2020-07-21 01:05 | disposition home or self-care (01) ==
LOC: ERS 21:30
DX: T83.511A Infection and inflammatory reaction due to indwelling urethral catheter, initial encounter (principal); N39.0 Urinary tract infection, site not specified
CPT/HCPCS: 36415; 80053; 81003; 81015; 85025; 87086; 96372; 99283; J0696

== ENCOUNTER 2021-02-01 10:53 | Emergency (ER) | payer SELFPAY ==
[2021-02-01 11:27] LABS: Bilirubin Negative (Negative); Blood, Urine Negative (Negative); Clarity Clear (Clear); Glucose, Urine (Dipstick) Normal (Negative); Ketone, Urine Negative (Negative); Leukocyte Negative Leu/uL (Negative); Nitrite Negative (Negative); Protein, Urine (Dipstick) Negative (Neg-Trace); Urobilinogen Normal mg/dL (Less than 2)
[2021-02-01 11:42] LABS: #Basophils 0.1 thou/uL (0.0-0.2); #Eosinphils 0.1 thou/uL (0.0-0.7); #Lymphocytes 2.8 thou/uL (1.20-3.40); #Monocytes 0.6 thou/uL (0.11-0.59); #Neutrophils 4.6 thou/uL (1.40-6.50); %Basophils 1.2 % (0.0-1.0); %Eosinophils 0.8 % (0.0-10.0); %Lymphocytes 34.2 % (21.0-51.0); %Monocytes 6.8 % (0.0-10.0); %Neutrophils 56.9 % (42.0-75.0); Hemoglobin 16.7 g/dL (14.0-18.0); Mean Corpuscular HGB CONC 32.5 g/dL (32.0-36.0); Mean Corpuscular Hemoglobin 30.7 pg (27.0-31.0); Mean Corpuscular Volume 94.4 fL (78.0-98.0); Mean Platelet Volume 7.9 fL (7.4-10.4); Platelet Count 236 thou/uL (130-400); RBC Distribution Width 11.1 % (11.5-14.5); Red Blood Cell (RBC) Count 5.44 mill/uL (4.70-6.10); White Blood Cell (WBC) Count 8.1 thou/uL (4.8-10.8)
[2021-02-01 12:05] LABS: ALT (SGPT) 20 U/L (8-55); AST (SGOT) 20 U/L (5-34); Albumin 4.6 g/dL (3.5-5.0); Alkaline Phosphatase 59 U/L (40-110); Anion Gap 13 mmol/L (10-20); BUN (Urea Nitrogen) 7 mg/dL (8.9-20.6); Calc. Creatinine Clearance 0 mL/min (70-130); Calcium 9.2 mg/dL (7.8-10.44); Carbon Dioxide 22 mmol/L (22-29); Chloride 99 mmol/L (98-107); Glucose 87 mg/dL (70-105); Lipase 18 U/L (8-78); Potassium 4.4 mmol/L (3.5-5.1); Protein, Total 7.6 g/dL (6.0-8.3); Sodium 130 mmol/L (136-145)
[2021-02-01] MEDS ORDERED: Ketorolac Tromethamine 30 MG/ML VIAL ONE (14:07)
== END 2021-02-01 15:24 | disposition home or self-care (01) ==
LOC: ERS 10:53
DX: R10.9 Unspecified abdominal pain (principal); R53.81 Other malaise
CPT/HCPCS: 74176; 76870; 80053; 81003; 83690; 85025; 93976; 96374; J1885

== ENCOUNTER 2021-02-03 19:42 | Emergency (ER) | payer SELFPAY | END 2021-02-03 22:57 | disposition left against medical advice (07) | LOC: ERS 19:42 | DX: Z53.21 Procedure and treatment not carried out due to patient leaving prior to being seen by health care provider (principal) | CPT/HCPCS: 93005 ==

== ENCOUNTER 2024-06-05 07:33 | Emergency (ER) | payer SELFPAY ==
[2024-06-05] MEDS ORDERED: Acetaminophen 500 MG TAB ONE (08:02)
[2024-06-05] MEDS ORDERED: Sodium Chloride 0.9% 100 ML ONE (08:03)
[2024-06-05] MEDS ORDERED: cefTRIAXone (ROCEPHIN) 1 GM VIAL ONE (08:03)
[2024-06-05 08:13] LABS: #Basophils 0.03 10x3/uL (0.0-0.2); #Eosinophils Less than 0.03 10x3/uL (0.0-0.7); %Basophils 0.2 % (0.0-1.0); %Lymphocytes 14.1 % (21.0-51.0); %Monocytes 11.8 % (0.0-10.0); %Neutrophils 73.7 % (42.0-75.0); Hemoglobin 15.4 g/dL (14.0-18.0); Mean Corpuscular Hemoglobin 30.9 pg (27.0-31.0); Mean Corpuscular Volume 88.4 fL (78.0-98.0); Mean Platelet Volume 11.2 fL (7.4-10.4); Platelet Count 209 10x3/uL (130-400); RBC Distribution Width 11.3 % (11.5-14.5); Red Blood Cell (RBC) Count 4.98 mill/uL (4.70-6.10)
[2024-06-05] MEDS ORDERED: Ondansetron PF 4 MG/2 ML Vial ONE (08:16)
[2024-06-05 08:27] LABS: INR-International Normal Ratio 1.3
[2024-06-05 08:28] LABS: ALT (SGPT) 37 U/L (8-55); AST (SGOT) 31 U/L (5-34); Albumin 3.7 g/dL (3.5-5.0); Alkaline Phosphatase 64 U/L (40-110); Anion Gap 15 mmol/L (10-20); BUN (Urea Nitrogen) 6 mg/dL (8.9-20.6); Bilirubin, Total 1.2 mg/dL (0.2-1.2); Calc. Creatinine Clearance 0 mL/min (70-130); Carbon Dioxide 23 mmol/L (22-29); Chloride 96 mmol/L (98-107); Estimated GFR 90; Globulin 3.3 g/dL (2.4-3.5); Glucose 104 mg/dL (70-105); PTT 35.8 sec (22.9-36.1); Potassium 3.5 mmol/L (3.5-5.1); Sodium 130 mmol/L (136-145)
[2024-06-05] MEDS ORDERED: Iopamidol-370 76% 500 ML MDV (1 ML CHARGE) ONE (09:12)
[2024-06-05] MEDS ORDERED: Ketorolac Tromethamine 30 MG (1 mL) VIAL ONE (09:26)
[2024-06-05 10:24] LABS: Bacteria/HPF None Seen HPF (None Seen); Bilirubin Negative (Negative); Blood, Urine Negative (Negative); CAUTI Indications for Culture Dysuria,urgency,freq; Clarity Clear (Clear); Glucose, Urine (Dipstick) Normal (Negative); Ketone, Urine 10 mg/dL (Negative); Leukocyte 75 Leu/uL (Negative); Nitrite Negative (Negative); Protein, Urine (Dipstick) 10 mg/dL (Neg-Trace); RBC/HPF 0-3 HPF (0-3); Specific Gravity, Urine 1.039 (1.002-1.036); Squamous Epithelial None Seen HPF (0-3); Urobilinogen Normal mg/dL (Less than 2); WBC/HPF 21-50 HPF (0-3); pH, Urine 6.5 (5.0-9.0)
[2024-06-05 10:28] LABS: Urine Culture Reflex Yes Yes
== END 2024-06-05 11:35 | disposition home or self-care (01) ==
LOC: ERS 07:33
DX: N10 Acute pyelonephritis (principal); F17.200 Nicotine dependence, unspecified, uncomplicated
CPT/HCPCS: 74177; 80053; 81001; 83605; 85025; 85610; 85730; 87040; 87086; 87428; 93005; 96374; 96375; J0696; J1885; J2405; Q9967